=== PATIENT | male | born 1995 | race Caucasian/White ===

== ENCOUNTER 2020-06-25 04:20 | Emergency (ER) | payer OTHER ==
[~2020-06-25] VITALS: Ht 182.9 cm; Wt 86.4 kg
[2020-06-25] MEDS ORDERED: IBUPROFEN 800 MG TAB PO ONE (06:15)
--- NOTE | 2020-06-25 06:25 | REPVR ---
PROCEDURE INFORMATION: Exam: XR Left Ankle Exam date and time: 06/25/20 (4:52am) Age: 24 years old Clinical indication: Twisted left ankle TECHNIQUE: Imaging protocol: XR Left ankle Views: 3 or more views COMPARISON: No relevant prior studies available FINDINGS: Bones/joints: Unremarkable. No acute fracture nor dislocation. Soft tissues: Unremarkable. IMPRESSION: No acute findings. Electronically signed by: aJzzy Mckoy On 06/25/2020 06:25:06 AM
--- NOTE | 2020-06-25 06:27 | REPVR ---
PROCEDURE INFORMATION: Exam: XR Left Foot Complete; Alignment Exam date and time: 06/25/20 (4:56am) Age: 24 years old Clinical indication: Twisted left ankle TECHNIQUE: Imaging protocol: XR Left foot Views: 3 or more views. Including weight-bearing lateral view. COMPARISON: No relevant prior studies available. FINDINGS: Bones/joints: Unremarkable. No acute fracture nor dislocation. Soft tissues: Unremarkable. IMPRESSION: No acute findings. Electronically signed by: Jazzy Mckoy On 06/25/2020 06:27:40 AM
[2020-06-25 07:00] VITALS: BP 136/65
--- NOTE | 2020-06-25 08:15 | REPVR ---
PROCEDURE INFORMATION: Exam: XR Left Tibia and Fibula Exam date and time: 06/25/2020 7:18 AM Age: 24 years old Clinical indication: Pain; Ankle; Left; Additional info: Ttp S/P ankle injury TECHNIQUE: Imaging protocol: XR Left tibia and fibula. Views: 2 views. (4 images total) COMPARISON: CR Ankle, complete LEFT 06/25/2020 4:44:02 AM FINDINGS: Bones/joints: No acute fracture is identified. There is no osseous erosion or cortical destruction. Soft tissues: The soft tissues appear grossly unremarkable. IMPRESSION: No acute fracture identified. Electronically signed by: Maurice Milian On 06/25/2020 08:15:38 AM
== END 2020-06-25 08:34 | disposition home or self-care (01) ==
LOC: M ED 04:20
DX: S93.402A Sprain of unspecified ligament of left ankle, initial encounter (principal); S93.602A Unspecified sprain of left foot, initial encounter; X50.9XXA Other and unspecified overexertion or strenuous movements or postures, initial encounter; Y92.89 Other specified places as the place of occurrence of the external cause